=== PATIENT | female | born 1935 ===

== ENCOUNTER 2018-06-23 09:42 | Emergency (ER) | payer OTHER ==
--- NOTE | 2018-06-23 11:40 | ED PDOC ---
HPI: Chest Pain Time Seen by Provider: 06/23/18 10:30 Chief Complaint (Nursing): Chest Pain Chief Complaint (Provider): Chest Pain History Per: Patient, Environmental Services Technician (Fiorella British ID# [id number]) Additional Complaint(s): 82 y/o female with history of diabetes, angina and hypertension presents to ER for evaluation of chest pain and dizziness onset this morning. Patient reports taking [facility] AS[facility] and reports improvement in symptoms by the time she arrived the ED. She denies shortness of breath. Patient is hard of hearing. 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 This action is against my medical advice. This decision was made with informed refusal. The patient was told that admission to the hospital is necessary. Explanation of the reasons why were discussed. The risks of leaving were explained to the patient and include, but are not limited to, worsening of known or currently unknown conditions, permanent disability and from undiagnosed or untreated conditions. The patient has the capacity to make this informed decision and understands my explanation of the current medical problem and risks of leaving. The patient voluntarily accepts these risks and signed an AMA form documenting our conversation. The patient was given the opportunity to ask questions and reconsider. The patient was encouraged to return to the Emergency Department at any time for further care. Past Medical History Reviewed: Historical Data, Nursing Documentation, Vital Signs Vital Signs: Last Vital Signs Temp 98.3 F 06/23/18 10:17 Pulse 74 06/23/18 10:17 Resp 18 06/23/18 10:17 BP Pulse Ox 97 06/23/18 10:17 - Medical History PMH: Diabetes, HTN Other PMH: Angina - Surgical History Surgical History: Cholecystectomy Other surgeries: Febroids - Family History Family History: States: Unknown Family Hx - Social History Current smoker - smoking cessation education provided: No Alcohol: None Drugs: Denies - Allergies Allergies/Adverse Reactions: Allergies Allergy/AdvReac Type Severity Reaction Status Date / Time No Known Allergies Allergy Verified 06/23/18 10:09 LOCO Risk Score for UA/NSTEMI - LOCO Risk Score Age > 64: YES 3 or more CAD Risk Factors: YES Known CAD (Stenosis greater than 50%): NO Aspirin use in past 7 days: YES Severe Angina: NO EKG ST changes greater than 0.5mm: NO Positive Cardiac Marker: NO LOCO Score: 3 Risk %: 13% Review of Systems ROS Statement: Except As Marked, All Systems Reviewed And Found Negative Cardiovascular: Positive for: Chest Pain Respiratory: Negative for: Shortness of Breath Neurological: Positive for: Dizziness Physical Exam - Reviewed Nursing Documentation Reviewed: Yes Vital Signs Reviewed: Yes - Physical Exam Appears: Positive for: Non-toxic, No Acute Distress Head Exam: Positive for: ATRAUMATIC, NORMOCEPHALIC Skin: Positive for: Normal Color, Warm, Dry Eye Exam: Positive for: Normal appearance, EOMI, PERRL ENT: Positive for: Normal ENT Inspection Neck: Positive for: Normal, Painless ROM, Supple Cardiovascular/Chest: Positive for: Regular Rate, Rhythm. Negative for: Murmur Respiratory: Positive for: Normal Breath Sounds. Negative for: Wheezing Gastrointestinal/Abdominal: Positive for: Normal Exam, Soft. Negative for: Tenderness Back: Positive for: Normal Inspection. Negative for: L CVA Tenderness, R CVA Tenderness Extremity: Positive for: Normal ROM. Negative for: Pedal Edema, Swelling Neurologic/Psych: Positive for: Alert, Oriented (x3) - ECG O2 Sat by Pulse Oximetry: 97 (RA) Pulse Ox Interpretation: Normal Medical Decision Making Medical Decision Making: Time: 1110 Initial Plan: chest pain, resolved at this time --CMP --Troponin --CBC --Chest x-ray --Aspirin 325 mg PO Patient is requesting to leave since symptoms have resolved. 1214 Patient refuses blood work and cxr and admission for chest pain, and explained she wants to leave [facility]. pt is awke and alert, oriented X3. I Tried to reach her daughter to tell her that patient is being discharged but no answer at number of her daughter given at registration. Patient is stable for discharge and wants to leave [facility]. Scribe Attestation: Documented by Mary Anne Caba, acting as a scribe for Nathan Hebert MD. Provider Scribe Attestation: All medical record entries made by the Scribe were at my direction and personally dictated by me. I have reviewed the chart and agree that the record accurately reflects my personal performance of the history, physical exam, medical decision making, and the department course for this patient. I have also personally directed, reviewed, and agree with the discharge instructions and disposition. Disposition - Clinical Impression Clinical Impression: Chest pain, Left against medical advice - Patient ED Disposition Is Patient to be Admitted: No Counseled Patient/Family Regarding: Need For Followup - Disposition Disposition: Routine/Home Disposition Time: 12:14 Condition: STABLE Additional Instructions: Erasmo un seguimiento con romo mdico de cabecera y cardilogo, el Dr. ruffin, louie pronto isak sea posible regresar al servicio de urgencias inmediatamente con cualquier empeoramiento o sntomas relacionados Instructions: Chest Pain, Leaving Against Medical Advice Forms: [employer] (British) Print Language: BERMUDIAN
[2018-06-23 12:59] VITALS: PULSE 74; RESP 18; TEMP 98.3; BMI 31.1
--- NOTE | 2018-06-23 13:32 | RAD ---
Date of service: 06/23/2018 HISTORY: chest pain COMPARISON: No prior. FINDINGS: LUNGS: No active pulmonary disease. PLEURA: No significant pleural effusion identified, no pneumothorax apparent. CARDIOVASCULAR: No radiographic findings to suggest acute or significant cardiovascular disease. Atherosclerotic calcifications identified primarily aortic arch. OSSEOUS STRUCTURES: No significant abnormalities. VISUALIZED UPPER ABDOMEN: Normal. OTHER FINDINGS: None. IMPRESSION: No active disease.
[2018-06-25 21:15] VITALS: O2SAT 97
== END 2018-06-23 12:30 | disposition left against medical advice (07) ==
LOC: H.ER 09:42
DX: R07.89 Other chest pain (principal); E11.9 Type 2 diabetes mellitus without complications; I10 Essential (primary) hypertension